=== PATIENT | male | born 1980 | race Caucasian/White ===

== ENCOUNTER 2017-03-18 17:32 | Emergency (ER) | payer OTHER ==
[~2017-03-18] VITALS: Ht 185.4 cm; Wt 104.3 kg
--- NOTE | 2017-03-18 18:03 | NUR ---
PT LEFT FOR XRAY.
--- NOTE | 2017-03-18 18:30 | NUR ---
Dr Cedeño at the bedside for eval and exam.
[2017-03-18] MEDS ORDERED: ONDANSETRON ODT 4 MG TAB.RAPDIS SL ONE (18:45)
[2017-03-18] MEDS ORDERED: CYCLOBENZAPRINE HCL 10 MG TABLET PO ONE (18:45)
[2017-03-18] MEDS ORDERED: OXYCODONE/APAP 5-325 MG TABLET PO ONE (18:45)
[2017-03-18] MEDS ORDERED: CYCLOBENZAPRINE HCL 10 MG TABLET ONE (18:53)
[2017-03-18] MEDS ORDERED: OXYCODONE/APAP 5-325 MG TABLET ONE (18:53)
[2017-03-18] MEDS ORDERED: ONDANSETRON ODT 4 MG TAB.RAPDIS ONE (18:53)
--- NOTE | 2017-03-18 19:09 | NUR ---
Patient discharged to home in stable conditon. Written and verbal after care instructions given. Patient verbalizes understanding of instructions.
[2017-03-18 19:10] VITALS: BP 144/76
== END 2017-03-18 19:10 | disposition home or self-care (01) ==
LOC: ER 17:32
DX: S29.012A Strain of muscle and tendon of back wall of thorax, initial encounter (principal); S20.229A Contusion of unspecified back wall of thorax, initial encounter; Z88.0 Allergy status to penicillin; J45.909 Unspecified asthma, uncomplicated; V09.9XXA Pedestrian injured in unspecified transport accident, initial encounter; Y93.89 Activity, other specified; Y92.413 State road as the place of occurrence of the external cause; Y99.9 Unspecified external cause status
CPT/HCPCS: 71010; 72072; 72110; 73110; 73564; 73610; 99284; A4663; Q0162